=== PATIENT | female | born 1975 | race Caucasian/White ===

== ENCOUNTER 2017-07-27 19:10 | Emergency (ER) | payer BC ==
[2017-07-27] MEDS ORDERED: ASPIRIN 81 MG TABLET, CHEWABLE PO ONE (19:50)
--- NOTE | 2017-07-27 19:55 | ER Document Report ---
ED Medical Screen (RME) - General Chief Complaint: Chest Pain > 30 Stated Complaint: CHEST DISCOMFORT Time Seen by Provider: 07/27/17 19:49 Mode of Arrival: Ambulatory Information source: Patient Notes: 42-year-old female history of anxiety ankylosing spondylolysis presents with 3 day duration of chest pain. Patient has taken antacids anxiety and itching with no relief of her pain. Patient denies any fevers or chills denies any nausea vomiting or diarrhea I have greeted and performed a rapid initial assessment of this patient. A comprehensive ED assessment and evaluation of the patient, analysis of test results and completion of the medical decision making process will be conducted by additional ED providers. PHYSICAL EXAMINATION: GENERAL: Well-appearing, well-nourished and in no acute distress. HEAD: Atraumatic, normocephalic. EYES: Pupils equal round extraocular movements intact, conjunctiva are normal. ENT: Nares patent NECK: Normal range of motion LUNGS: No respiratory distress Musculoskeletal: Normal range of motion NEUROLOGICAL: Normal speech, normal gait. PSYCH: Normal mood, normal affect. SKIN: Warm, Dry, normal turgor, no rashes or lesions noted. TRAVEL OUTSIDE OF THE [place] IN LAST 30 DAYS: No - Related Data Allergies/Adverse Reactions: miconazole nitrate [From Monistat 3] Allergy (Severe, Verified 07/29/14 10:52) Hives nitrofurantoin [From Macrobid] Allergy (Severe, Verified 07/29/14 10:52) Anaphylaxis nitrofurantoin macrocrystalline [From Macrobid] Allergy (Severe, Verified 10:52) Anaphylaxis Sulfa (Sulfonamide Antibiotics) Allergy (Severe, Verified 07/29/14 10:52) Anaphylaxis promethazine HCl [From Phenergan] Adverse Reaction (Severe, Verified 07/29/14 10 :52) Psychosis Past Medical History Neurological Medical History: Reports: Hx Migraine Renal/ Medical History: Denies: Hx Peritoneal Dialysis Past Surgical History: Reports: Hx Appendectomy, Hx Section, Hx Cholecystectomy, Hx Thyroid Surgery, Hx Tonsillectomy Physical Exam - Vital signs Vitals: Temp Pulse Resp BP Pulse Ox 97.7 F 100 17 159/91 H 100 07/27/17 19:20 07/27/17 19:20 07/27/17 19:20 07/27/17 19:20 07/27/17 19:20 Course - Vital Signs Vital signs: Temp Pulse Resp BP Pulse Ox 97.7 F 100 17 159/91 H 100 07/27/17 19:20 07/27/17 19:20 07/27/17 19:20 07/27/17 19:20 07/27/17 19:20
[2017-07-27 20:22] LABS: ABSOLUTE BASOPHILS # (AUTO) 0.1 10^3/uL (0.0-0.2); ABSOLUTE EOSINOPHILS # (AUTO) 0.1 10^3/uL (0.0-0.6); ABSOLUTE MONOCYTES (AUTO) 0.4 10^3/uL (0.1-1.4); ABSOLUTE NEUT (AUTO) 3.6 10^3/uL (1.7-8.2); EOSINOPHILS % (AUTO) 0.8 % (0-6); HEMOGLOBIN 13.2 g/dL (12.0-15.5); HGB HCT DIFFERENCE 0.6; LYMPHOCYTES % (AUTO) 42.7 % (13-45); MEAN CORPUSCULAR HEMOGLOBIN 30.2 pg (27.0-33.4); MEAN CORPUSCULAR HGB CONC 33.8 g/dL (32.0-36.0); MEAN CORPUSCULAR VOLUME 90 fl (80-97); MONOCYTES % (AUTO) 5.2 % (3-13); RED BLOOD COUNT 4.36 10^6/uL (3.72-5.28); RED CELL DISTRIBUTION WIDTH 12.9 % (11.5-14.0); SEGMENTED NEUTROPHILS % (AUTO) 50.3 % (42-78); WHITE BLOOD COUNT 7.1 10^3/uL (4.0-10.5)
--- NOTE | 2017-07-27 20:30 | RADIOLOGY REPORT (SQ) ---
EXAM DESCRIPTION: CHEST SINGLE VIEW COMPLETED DATE/TIME: 07/27/2017 8:19 pm REASON FOR STUDY: chest pain COMPARISON: December 2010 EXAM PARAMETERS: NUMBER OF VIEWS: One view. TECHNIQUE: Single frontal radiographic view of the chest acquired. RADIATION DOSE: NA LIMITATIONS: None. FINDINGS: LUNGS AND PLEURA: No opacities, masses or pneumothorax. No pleural effusion. MEDIASTINUM AND HILAR STRUCTURES: No masses. Contour normal. HEART AND VASCULAR STRUCTURES: Heart normal in size. Normal vasculature. BONES: No acute findings. HARDWARE: None in the chest. OTHER: No other significant finding. IMPRESSION: NO ACUTE RADIOGRAPHIC FINDING IN THE CHEST. TECHNICAL DOCUMENTATION: JOB ID: [id number]
[2017-07-27 20:43] LABS: ALANINE AMINOTRANSFERASE 21 U/L (9-52); ALBUMIN 4.3 g/dL (3.5-5.0); ALKALINE PHOSPHATASE 58 U/L (38-126); ANION GAP 9 (5-19); ASPARTATE AMINO TRANSFERASE 43 U/L (14-36); BILIRUBIN,DIRECT 0.4 mg/dL (0.0-0.4); BILIRUBIN,TOTAL 0.5 mg/dL (0.2-1.3); BLOOD UREA NITROGEN 18 mg/dL (7-20); CARBON DIOXIDE 29 mmol/L (22-30); CHLORIDE 103 mmol/L (98-107); CREATINE KINASE 83 U/L (30-135); CREATININE RESULT 0.82 mg/dL (0.52-1.25); GLUCOSE 103 mg/dL (75-110); POTASSIUM 3.7 mmol/L (3.6-5.0); SODIUM 140.9 mmol/L (137-145); TOTAL PROTEIN 7.2 g/dL (6.3-8.2)
[2017-07-27] MEDS ORDERED: ALPRAZOLAM 0.5 MG TABLET PO ONE (20:43)
--- NOTE | 2017-07-27 20:48 | ER Document Report ---
ED General - General Chief Complaint: Chest Pain > 30 Stated Complaint: CHEST DISCOMFORT Time Seen by Provider: 07/27/17 19:49 Mode of Arrival: Ambulatory Information source: Patient Notes: 42-year-old female with a history of thyroid cancer (status post thyroidectomy) , rheumatoid arthritis, ankylosing spondylitis, migraines. The patient presents to the emergency room with constant retrosternal chest pain radiating to the back since Thursday at approximately 10 AM (constant for approximately 72 hours). Patient states she was in the MRI scanner when she started having discomfort. Patient has a cervical radiculopathy with constant left arm pain and she has chronic back pain. 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 She denies any exertional shortness of breath. She denies any worsening pain with exertion. The pain is worse with movement. TRAVEL OUTSIDE OF THE [place] IN LAST 30 DAYS: No - HPI Onset: Last week Onset/Duration: Gradual Quality of pain: Dull Severity: Moderate Pain Level: 3 Associated symptoms: denies: Chest pain, Fever, Shortness of breath Exacerbated by: Movement Relieved by: Denies Similar symptoms previously: Yes Recently seen / treated by doctor: Yes - Related Data Allergies/Adverse Reactions: miconazole nitrate [From Monistat 3] Allergy (Severe, Verified 07/29/14 10:52) Hives nitrofurantoin [From Macrobid] Allergy (Severe, Verified 07/29/14 10:52) Anaphylaxis nitrofurantoin macrocrystalline [From Macrobid] Allergy (Severe, Verified 10:52) Anaphylaxis Sulfa (Sulfonamide Antibiotics) Allergy (Severe, Verified 07/29/14 10:52) Anaphylaxis promethazine HCl [From Phenergan] Adverse Reaction (Severe, Verified 07/29/14 10 :52) Psychosis Past Medical History - General Information source: Patient - Social History Smoking Status: Former Smoker Cigarette use (# per day): No Chew tobacco use (# tins/day): No Frequency of alcohol use: Social Drug Abuse: None Lives with: Family Family History: None, Other - Colon cancer Patient has suicidal ideation: No Patient has homicidal ideation: No - Past Medical History Cardiac Medical History: Reports: None Pulmonary Medical History: Reports: None Neurological Medical History: Reports: Hx Migraine Endocrine Medical History: Reports: Other - thyroid ca s/o thyroidectomy Renal/ Medical History: Reports: None Malignancy Medical History: Reports: None GI Medical History: Reports: None Musculoskeltal Medical History: Reports Other - RA, Skin Medical History: Reports None Psychiatric Medical History: Reports: None Traumatic Medical History: Reports: None Past Surgical History: Reports: Hx Appendectomy, Hx Section, Hx Cholecystectomy, Hx Thyroid Surgery, Hx Tonsillectomy Review of Systems - Review of Systems Constitutional: denies: Chills, Fever EENT: No symptoms reported Cardiovascular: No symptoms reported Respiratory: No symptoms reported Gastrointestinal: No symptoms reported Genitourinary: No symptoms reported Female Genitourinary: No symptoms reported Musculoskeletal: See HPI Skin: No symptoms reported Hematologic/Lymphatic: No symptoms reported Neurological/Psychological: No symptoms reported Physical Exam - Vital signs Vitals: Temp Pulse Resp BP Pulse Ox 97.7 F 100 17 159/91 H 100 07/27/17 19:20 07/27/17 19:20 07/27/17 19:20 07/27/17 19:20 07/27/17 19:20 Notes: Physical exam: GENERAL: 42-year-old female, alert and oriented 3, blood pressure 154/101, pulse 90. HEAD: Atraumatic, normocephalic. EYES: Pupils equal round and reactive to light, extraocular movements intact, sclera anicteric, conjunctiva are normal. ENT: TMs normal, nares patent, oropharynx clear without exudates. Moist mucous membranes. NECK: Normal range of motion, supple without obvious mass or JVD. LUNGS: Breath sounds clear to auscultation bilaterally and equal. No wheezes rales or rhonchi. HEART: Regular rate and rhythm without murmurs, rubs or gallops. ABDOMEN: Soft, normoactive bowel sounds. No tenderness to palpation. No guarding, no rebound. No masses appreciated. EXTREMITIES: Normal range of motion, no pitting or edema. No clubbing or cyanosis. NEUROLOGICAL: Cranial nerves II through XII grossly intact. Normal speech, moving all extremities. PSYCH: Normal mood, normal affect. SKIN: Warm, Dry, normal turgor, no rashes or lesions noted. Course - Re-evaluation Re-evalutation: 07/27/17 23:25 Patient states she got instantaneous relief with the Dilaudid. She is now walking to the bathroom. She does appear much more comfortable. - Vital Signs Vital signs: Temp Pulse Resp BP Pulse Ox 97.7 F 100 18 124/91 H 99 07/27/17 19:20 07/27/17 19:20 07/28/17 00:01 07/28/17 00:01 07/28/17 00:01 - Laboratory Result Diagrams: 07/27/17 20:10 07/27/17 20:10 Laboratory results interpreted by me: 07/27/17 20:10 AST 43 H - Diagnostic Test Radiology reviewed: Image reviewed, Reports reviewed - Chest x-ray shows no infiltrates or effusions - EKG Interpretation by Me Rate: Normal, Tachycardia Rhythm: NSR - EKG shows sinus rhythm with a ventricular rate of 100, no acute ST -T wave changes. The patient reports that her heart rate is normally between 80 and 100. Discharge - Discharge Clinical Impression: Chest wall pain Condition: Stable Disposition: HOME, SELF-CARE Additional Instructions: Thank you for choosing [facility] for your care. The examination and treatment you have received in the Emergency Department today has been rendered on an emergency basis only and is not intended to be a substitute for complete medical care. You should contact your follow-up physician as it is important that he or she examine you for any new or remaining problems. If given a copy of any lab tests or radiology reports, please bring them with you when you see your physician. If your problem worsens or new symptoms appear and you are unable to arrange prompt follow-up care, return to the Emergency Department. Specific signs to look out for: Shortness of breath, worsening pain Any other instructions: Take the Dilaudid as prescribed. Follow-up with your primary care doctor (Dr. Buckley). Bring a copy of today's lab tests and CT report with with you when you call. The pain medicine you're taking prescribed as a narcotic. There are several important things you should know about this medicine: 1. Taking narcotics for too long can lead to physical and mental dependence. Take this medicine only if really needed and in the lowest quantity to achieve pain relief. 2. Do not drink alcohol while on this medicine. Alcohol interacts with narcotics and the combination can be dangerous. 3. Do not drive or operate machinery while on this medicine. 4. Narcotics do cause constipation, so drink plenty of fluids and daily stool softeners. Prescriptions: Hydromorphone HCl [Dilaudid 2 Mg Tablet] 2 mg PO Q6H PRN #20 tablet PRN Reason: for pain Forms: Parent Work Note, Return to Work Referrals: HUI ALTAMIRANO MD [Primary Care Provider] - Follow up as needed
[2017-07-27 20:55] LABS: CREATINE KINASE MB 0.39 ng/mL (<4.55)
[2017-07-27 20:56] LABS: TROPONIN I < 0.012 ng/mL
[2017-07-27] MEDS ORDERED: ONDANSETRON HCL INJ/PF 4 MG/2 ML SDV IV ONE (22:07)
[2017-07-27] MEDS ORDERED: HYDROMORPHONE HCL INJ/PF 2 MG/ML AMPULE IV ONE (22:07)
--- NOTE | 2017-07-27 22:42 | RADIOLOGY REPORT (SQ) ---
EXAM DESCRIPTION: CTA CHEST COMPLETED DATE/TIME: 07/27/2017 10:06 pm REASON FOR STUDY: cp COMPARISON: Chest x-ray dated 07/27/2017 TECHNIQUE: CT scan of the chest performed using helical scanning technique with dynamic intravenous contrast injection. Images reviewed with lung, soft tissue and bone windows. Reconstructed coronal and sagittal MPR images reviewed. Additional 3 dimensional post-processing performed to develop Maximal Intensity Projection images (WA P). All images stored on PACS. All CT scanners at this facility use dose modulation, iterative reconstruction, and/or weight based d osing when appropriate to reduce radiation dose to as low as reasonably achievable (ALARA). [facility]: Dose Right [facility]: CareDose [facility]: Dose Right [facility]: Teradose 4D [facility]: Movinary CONTRAST TYPE AND DOSE: contrast/concentration: Isovue 370.00 mg/ml; Total Contrast Delivered: 100.0 ml; Total Saline Delivered: 75.1 ml Contrast bolus optimized for the pulmonary arteries. Not diagnostic for the aorta. RENAL FUNCTION: Creatinine 0.82 RADIATION DOSE: Up-to-date CT equipment and radiation dose reduction techniques were employed. CTDIv ol: 5.0 - 15.8 mGy. DLP: 564 mGy-cm. . LIMITATIONS: None. FINDINGS: LUNGS AND PLEURA: No masses, infiltrates, pneumothorax. No pleural effusions, calcificati ons. AORTA AND GREAT VESSELS: No aneurysm. Contrast bolus not optimized for the aorta. HEART: No pericardial effusion. No significant coronary artery calcifications. PULMONARY ARTERIES: No emboli visualized in the main pulmonary arteries or the segmental branches. HILAR AND MEDIASTINAL STRUCTURES: No identified masses or abnormal nodes. HARDWARE: None in the chest. UPPER ABDOMEN: No significant findings. Limited exam. THYROID AND OTHER SOFT TISSUES: No masses. No adenopathy. BONES: No acute or significant finding. 3D MIPS: Confirm above findings. OTHER: No other significant finding. IMPRESSION: NORMAL CTA OF THE CHEST. NO PULMONARY EMBOLI. COMMENT: Quality ID # [id number]: Final reports with documentation of one or more dose reduction techniques (e.g., Automated exposure control, adjustment of the mA and/or kV according to patient size, use of iterative reconstruction technique) TECHNICAL DOCUMENTATION: JOB ID: [id number]- All Rights Reserved
[2017-07-28 00:05] VITALS: BP 124/91
--- NOTE | 2017-07-28 07:56 | EKG REPORT ---
SEVERITY:- BORDERLINE ECG - SINUS TACHYCARDIA PROBABLE LEFT ATRIAL ABNORMALITY : Confirmed by: Marcus Watkins MD 28-Jul-2017 07:54:58
== END 2017-07-28 00:23 | disposition home or self-care (01) ==
LOC: ER 19:10
DX: R07.89 Other chest pain (principal); R00.0 Tachycardia, unspecified; M54.12 Radiculopathy, cervical region; G89.29 Other chronic pain; E89.0 Postprocedural hypothyroidism; Z88.3 Allergy status to other anti-infective agents; Z87.892 Personal history of anaphylaxis; Z88.2 Allergy status to sulfonamides; Z88.1 Allergy status to other antibiotic agents; Z87.891 Personal history of nicotine dependence; Z85.850 Personal history of malignant neoplasm of thyroid
CPT/HCPCS: 93005; 99285; 96374; 96375; 36415; 82553; 82550; 85025; 80053; 84484; 71010; 71275; 93010; J1170; J2405

== ENCOUNTER 2018-07-12 13:49 | Emergency (ER) | payer BC ==
[2018-07-12] MEDS ORDERED: NORMAL SALINE 1000 ML 1,000 ML IV ONE (14:15)
[2018-07-12] MEDS ORDERED: ONDANSETRON HCL INJ/PF 4 MG/2 ML SDV IV ONE (14:17)
--- NOTE | 2018-07-12 14:17 | ER Document Report ---
ED Medical Screen (RME) - General Chief Complaint: Head Injury with LOC Stated Complaint: FELL/HIT HEAD Time Seen by Provider: 07/12/18 14:02 Mode of Arrival: Wheelchair Information source: Patient Notes: This is a 43-year-old female with a history of thyroid cancer (status post thyroidectomy), rheumatoid arthritis, ankylosing spondylitis, migraines. Patient was usual state of health until afternoon today when she started having abdominal cramping, diarrhea diffuse sweating and she fell leaving the bathroom. She hit the door to the bathroom and had loss of consciousness. She complains of 5/5 headache. TRAVEL OUTSIDE OF THE [place] IN LAST 30 DAYS: No - Related Data Allergies/Adverse Reactions: miconazole nitrate [From Monistat 3] Allergy (Severe, Verified 07/12/18 13:56) Hives nitrofurantoin [From Macrobid] Allergy (Severe, Verified 07/12/18 13:56) Anaphylaxis nitrofurantoin macrocrystalline [From Macrobid] Allergy (Severe, Verified 13:56) Anaphylaxis Sulfa (Sulfonamide Antibiotics) Allergy (Severe, Verified 07/12/18 13:56) Anaphylaxis promethazine HCl [From Phenergan] Adverse Reaction (Severe, Verified 07/12/18 13 :56) Psychosis Past Medical History - Social History Chew tobacco use (# tins/day): No Frequency of alcohol use: Rare Drug Abuse: None Neurological Medical History: Reports: Hx Migraine Renal/ Medical History: Denies: Hx Peritoneal Dialysis Past Surgical History: Reports: Hx Appendectomy, Hx Section, Hx Cholecystectomy, Hx Thyroid Surgery, Hx Tonsillectomy Physical Exam - Vital signs Vitals: Temp Pulse Resp BP Pulse Ox 97.6 F 81 18 128/72 H 99 07/12/18 13:58 07/12/18 13:58 07/12/18 13:58 07/12/18 13:58 07/12/18 13:58 Course - Vital Signs Vital signs: Temp Pulse Resp BP Pulse Ox 97.6 F 81 18 128/72 H 99 07/12/18 13:58 07/12/18 13:58 07/12/18 13:58 07/12/18 13:58 07/12/18 13:58 Doctor's Discharge - Discharge Referrals: HUI ALTAMIRANO MD [Primary Care Provider] - Follow up as needed
--- NOTE | 2018-07-12 14:43 | ER Document Report ---
ED Syncope and Near Syncope - General Chief Complaint: Head Injury with LOC Stated Complaint: FELL/HIT HEAD Time Seen by Provider: 07/12/18 14:02 Mode of Arrival: Wheelchair Information source: Patient Notes: 43-year-old female felt fine until noon today she started getting abdominal cramping and diarrhea. She sat on the toilet for 30 minutes. When she felt like she could get up she felt lightheaded grabbed the door and the next thing she knows she woke up with her head inside the closet. She has already been to CT scan and x-ray. Her IV in the left antecubital is not irrigating. She is complaining of nausea and headache pain. I changed the Zofran to 8 mg ODT and the nurse will have to restart the IV. Patient has had vasovagal syncope in the past and had a cardiac event monitor for 30 days which did not reveal any cardiac dysrhythmias. TRAVEL OUTSIDE OF THE [place] IN LAST 30 DAYS: No - Related Data Allergies/Adverse Reactions: miconazole nitrate [From Monistat 3] Allergy (Severe, Verified 07/12/18 13:56) Hives nitrofurantoin [From Macrobid] Allergy (Severe, Verified 07/12/18 13:56) Anaphylaxis nitrofurantoin macrocrystalline [From Macrobid] Allergy (Severe, Verified 13:56) Anaphylaxis Sulfa (Sulfonamide Antibiotics) Allergy (Severe, Verified 07/12/18 13:56) Anaphylaxis promethazine HCl [From Phenergan] Adverse Reaction (Severe, Verified 07/12/18 13 :56) Psychosis Past Medical History - General Information source: Patient - Social History Smoking Status: Never Smoker Chew tobacco use (# tins/day): No Frequency of alcohol use: Rare Drug Abuse: None Family History: None, Other - Colon cancer Patient has suicidal ideation: No Patient has homicidal ideation: No Neurological Medical History: Reports: Hx Migraine Renal/ Medical History: Denies: Hx Peritoneal Dialysis Past Surgical History: Reports: Hx Appendectomy, Hx Section, Hx Cholecystectomy, Hx Thyroid Surgery, Hx Tonsillectomy Review of Systems - Review of Systems Constitutional: No symptoms reported EENT: No symptoms reported Cardiovascular: No symptoms reported Respiratory: No symptoms reported Gastrointestinal: No symptoms reported Genitourinary: No symptoms reported Female Genitourinary: No symptoms reported Musculoskeletal: No symptoms reported Skin: No symptoms reported Hematologic/Lymphatic: No symptoms reported Neurological/Psychological: No symptoms reported Physical Exam - Vital signs Vitals: Temp Pulse Resp BP Pulse Ox 97.6 F 81 18 128/72 H 99 07/12/18 13:58 07/12/18 13:58 07/12/18 13:58 07/12/18 13:58 07/12/18 13:58 Interpretation: Normal - General General appearance: Appears well, Alert In distress: None - HEENT Head: Normocephalic, Atraumatic Eyes: Normal Conjunctiva: Normal Extraocular movements intact: Yes Pupils: PERRL Ears: Normal Tympanic membrane: Normal Mucous membranes: Normal Pharynx: Normal Neck: Supple. No: Lymphadenopathy - Respiratory Respiratory status: No respiratory distress Chest status: Nontender Breath sounds: Normal Chest palpation: Normal - Cardiovascular Rhythm: Regular Heart sounds: Normal auscultation Murmur: No - Abdominal Inspection: Normal Distension: No distension Bowel sounds: Normal Tenderness: Nontender Organomegaly: No organomegaly - Back Back: Normal, Nontender - Extremities General upper extremity: Normal inspection, Nontender, Normal color, Normal ROM , Normal temperature General lower extremity: Normal inspection, Nontender, Normal color, Normal ROM , Normal temperature, Normal weight bearing. No: Concha's sign - Neurological Neuro grossly intact: Yes Cognition: Normal Orientation: AAOx4 [place] Coma Scale Eye Opening: Spontaneous [place] Coma Scale Verbal: Oriented [place] Coma Scale Motor: Obeys Commands Izabel Coma Scale Total: 15 Speech: Normal Motor strength normal: LUE, RUE, LLE, RLE Sensory: Normal - Psychological Associated symptoms: Normal affect, Normal mood - Skin Skin Temperature: Warm Skin Moisture: Dry Skin Color: Normal Course - Re-evaluation Re-evalutation: 07/12/18 16:03 Lab is negative, CT of the head and neck are negative, left shoulder x-ray is negative patient is not wanting to stay for the IV the nurse had readjusted the IV and it will drip if she holds her arm in a certain location. She is doing almost a full Gatorade. She states that this headache pain may be due to migraines which she has had in the past. I will try some Benadryl and Reglan to reduce the pain level. Patient states that sitting here is making her headache worse and that she feels like she wants to go home. she Wants to try the medicine first. 07/12/18 16:04 07/12/18 16:23 Explained head injury instructions to the patient and her mother who is in the room. The mother lives across the street. Patient also states that she will call her home from work to stay with today. Some relief from the reglan and benadryl IV. - Vital Signs Vital signs: Temp Pulse Resp BP Pulse Ox 98.1 F 84 18 130/74 H 100 07/12/18 16:59 07/12/18 16:59 07/12/18 16:59 07/12/18 16:59 07/12/18 16:59 - Laboratory Result Diagrams: 07/12/18 14:23 07/12/18 14:23 Laboratory results interpreted by me: 07/12/18 14:23 Seg Neutrophils % 79.6 H - EKG Interpretation by Me EKG shows normal: Sinus rhythm Rate: Normal Rhythm: NSR Discharge - Discharge Clinical Impression: Syncopal episode, Left forehead contusion, Diarrhea episodes, Head injury Headache Qualifiers: Headache type: unspecified Headache chronicity pattern: acute headache Intractability: not intractable Qualified Code(s): R51 - Headache Condition: Good Disposition: HOME, SELF-CARE Instructions: Contusion ([facility]), Diarrhea, Nonspecific ([facility]), Headache ([facility]), Head Injury Precautions ([facility]), Syncopal Episode ([facility]) Additional Instructions: Tylenol up to 4000 mg a day for headache No work tomorrow 2 plenty of fluids today and advance diet as tolerated Return to the emergency room for any worsening of symptoms Copy of lab work and imaging results given to you Referrals: HUI ALTAMIRANO MD [Primary Care Provider] - Follow up tomorrow
[2018-07-12 14:44] LABS: ABSOLUTE LYMPHOCYTES (AUTO) 1.4 10^3/uL (0.5-4.7); ABSOLUTE MONOCYTES (AUTO) 0.4 10^3/uL (0.1-1.4); ABSOLUTE NEUT (AUTO) 7.3 10^3/uL (1.7-8.2); BASOPHILS % (AUTO) 0.5 % (0-2); EOSINOPHILS % (AUTO) 0.3 % (0-6); HEMATOCRIT 44.9 % (36.0-47.0); LYMPHOCYTES % (AUTO) 15.5 % (13-45); MEAN CORPUSCULAR HGB CONC 33.4 g/dL (32.0-36.0); MEAN CORPUSCULAR VOLUME 90 fl (80-97); MONOCYTES % (AUTO) 4.1 % (3-13); PLATELET COUNT 281 10^3/uL (150-450); RED CELL DISTRIBUTION WIDTH 13.7 % (11.5-14.0); SEGMENTED NEUTROPHILS % (AUTO) 79.6 % (42-78); TOTAL CELLS COUNTED % (AUTO) 100 %; WHITE BLOOD COUNT 9.2 10^3/uL (4.0-10.5)
[2018-07-12] MEDS ORDERED: ACETAMINOPHEN 325 MG TABLET PO ONE (14:53)
--- NOTE | 2018-07-12 14:53 | RADIOLOGY REPORT (SQ) ---
EXAM DESCRIPTION: SHOULDER LEFT 2 OR MORE VIEWS COMPLETED DATE/TIME: 07/12/2018 2:44 pm REASON FOR STUDY: left shoulder pain s/p fall COMPARISON: None. NUMBER OF VIEWS: Three views. TECHNIQUE: Internal rotation, external rotation, and Y view images acquired of the left shoulder. LIMITATIONS: None. FINDINGS: MINERALIZATION: Normal. BONES: No acute fracture or dislocation. No worrisome bone lesions. JOINTS: No dislocation. VISUALIZED LUNGS AND RIBS: No pneumothorax. No rib fracture. SOFT TISSUES: No radiopaque foreign body. OTHER: No other significant finding. IMPRESSION: NEGATIVE STUDY OF THE LEFT SHOULDER. NO RADIOGRAPHIC EVIDENCE OF ACUTE INJURY. TECHNICAL DOCUMENTATION: JOB ID: [id number] [employer]- All Rights Reserved Reading location - IP/workstation name: [email or web address]
[2018-07-12] MEDS ORDERED: ONDANSETRON 4 MG TAB.RAPDIS PO ONE (14:55)
[2018-07-12 14:59] LABS: ALANINE AMINOTRANSFERASE 29 U/L (9-52); ALBUMIN 4.6 g/dL (3.5-5.0); ALKALINE PHOSPHATASE 59 U/L (38-126); ANION GAP 16 (5-19); ASPARTATE AMINO TRANSFERASE 29 U/L (14-36); BILIRUBIN,DIRECT 0.4 mg/dL (0.0-0.4); BILIRUBIN,TOTAL 0.4 mg/dL (0.2-1.3); BLOOD UREA NITROGEN 17 mg/dL (7-20); CALCIUM 9.6 mg/dL (8.4-10.2); CARBON DIOXIDE 24 mmol/L (22-30); CHLORIDE 104 mmol/L (98-107); GLUCOSE 106 mg/dL (75-110); POTASSIUM 4.5 mmol/L (3.6-5.0); SODIUM 143.8 mmol/L (137-145)
--- NOTE | 2018-07-12 15:05 | RADIOLOGY REPORT (SQ) ---
EXAM DESCRIPTION: CT HEAD WITHOUT COMPLETED DATE/TIME: 07/12/2018 2:52 pm REASON FOR STUDY: fall, thomas, loc COMPARISON: 07/05/2009 TECHNIQUE: Axial images acquired through the brain without intravenous contrast. Images reviewed wi th bone, brain and subdural windows. Additional sagittal and coronal reconstructions were generated. Images stored on PACS. All CT scanners at this facility use dose modulation, iterative reconstruction, and/or weight based d osing when appropriate to reduce radiation dose to as low as reasonably achievable (ALARA). [facility]: Dose Right [facility]: CareDose [facility]: Dose Right [facility]: Teradose 4D [facility]: Smart Compario RADIATION DOSE: CT Rad equipment meets quality standard of care and radiation dose reduction techniq ues were employed. CTDIvol: 53.2 mGy. DLP: 1017 mGy-cm. mGy. LIMITATIONS: None. FINDINGS: VENTRICLES: Normal size and contour. CEREBRUM: No masses. No hemorrhage. No midline shift. No evidence for acute infarction. Normal gra y/white matter differentiation. No areas of low density in the white matter. CEREBELLUM: No masses. No hemorrhage. No alteration of density. No evidence for acute infarction. EXTRAAXIAL SPACES: No fluid collections. No masses. ORBITS AND GLOBE: No intra- or extraconal masses. Normal contour of globe without masses. CALVARIUM: No fracture. PARANASAL SINUSES: No fluid or mucosal thickening. SOFT TISSUES: No mass or hematoma. OTHER: No other significant finding. IMPRESSION: NORMAL BRAIN CT WITHOUT CONTRAST. EVIDENCE OF ACUTE STROKE: NO. COMMENT: Quality ID # [id number]: Final reports with documentation of one or more dose reduction techniques (e.g., Automated exposure control, adjustment of the mA and/or kV according to patient size, use of iterative reconstruction technique) TECHNICAL DOCUMENTATION: JOB ID: [id number] [employer]- All Rights Reserved Reading location - IP/workstation name: [email or web address]
--- NOTE | 2018-07-12 15:12 | RADIOLOGY REPORT (SQ) ---
EXAM DESCRIPTION: CT CERVICAL SPINE WITHOUT COMPLETED DATE/TIME: 07/12/2018 2:52 pm REASON FOR STUDY: fall, head injury COMPARISON: None. TECHNIQUE: Axial images acquired through the cervical spine without intravenous contrast. Images re viewed with lung, soft tissue and bone windows. Reconstructed coronal and sagittal MPR images review ed. Images stored on PACS. All CT scanners at this facility use dose modulation, iterative reconstruction, and/or weight based d osing when appropriate to reduce radiation dose to as low as reasonably achievable (ALARA). [facility]: Dose Right [facility]: CareDose [facility]: Dose Right [facility]: Teradose 4D [facility]: [employer] RADIATION DOSE: CT Rad equipment meets quality standard of care and radiation dose reduction techniq ues were employed. CTDIvol: 20.1 mGy. DLP: 399 mGy-cm. mGy. LIMITATIONS: None. FINDINGS: ALIGNMENT: Anatomic. MINERALIZATION: Normal. VERTEBRAL BODIES: No fractures or dislocation. DISCS: No significant disc disease. FACETS, LATERAL MASSES, POSTERIOR ELEMENTS: No fractures. No dislocation. No acute findings. HARDWARE: None in the spine. VISUALIZED RIBS: No fractures. LUNG APICES AND SOFT TISSUES: No significant or acute findings. OTHER: No other significant finding. IMPRESSION: NO ACUTE OR SIGNIFICANT FINDINGS IN THE CERVICAL SPINE. TECHNICAL DOCUMENTATION: JOB ID: [id number] Quality ID # [id number]: Final reports with documentation of one or more dose reduction techniques (e.g., Au tomated exposure control, adjustment of the mA and/or kV according to patient size, use of iterative reconstruction technique) 2010 [employer]- All Rights Reserved Reading location - IP/workstation name: [email or web address]
[2018-07-12] MEDS ORDERED: DIPHENHYDRAMINE HCL 50 MG/ML VIAL IV ONE (16:03)
[2018-07-12] MEDS ORDERED: METOCLOPRAMIDE HCL INJ/PF 10 MG/2 ML SDV IV ONE (16:03)
[2018-07-12 17:00] VITALS: BP 130/74
--- NOTE | 2018-07-12 17:18 | EKG REPORT ---
SEVERITY:- NORMAL ECG - SINUS RHYTHM : Confirmed by: Marcus Watkins MD 12-Jul-2018 17:17:44
== END 2018-07-12 17:00 | disposition home or self-care (01) ==
LOC: ER 13:49
DX: S00.83XA Contusion of other part of head, initial encounter (principal); S09.90XA Unspecified injury of head, initial encounter; R55 Syncope and collapse; R19.7 Diarrhea, unspecified; R10.9 Unspecified abdominal pain; R11.0 Nausea; R51 Headache; W19.XXXA Unspecified fall, initial encounter
CPT/HCPCS: 93005; 99285; 96361; 96374; 96375; 36415; 84702; 85025; 80053; 73030; 70450; 72125; 93010; J1200; S0119; J2765; J7030

== ENCOUNTER 2018-08-29 15:54 | Emergency (ER) | payer BC ==
[2018-08-29] MEDS ORDERED: HYDROCODONE/ACETAMINOPHEN 5-325 MG TABLET PO ONE (16:39)
--- NOTE | 2018-08-29 16:41 | ER Document Report ---
ED Medical Screen (RME) - General Chief Complaint: Leg Injury Stated Complaint: LEG PAIN Time Seen by Provider: 08/29/18 16:26 TRAVEL OUTSIDE OF THE [place] IN LAST 30 DAYS: No - HPI Patient complains to provider of: pain in left leg Onset: Other - 43-year-old female with a history of rheumatoid arthritis on intermittent biologic injections that presents for evaluation of pain in the left leg after attempting to make her bed. She felt a pop in exquisite pain in the left calf. She tried to continue on but the pain made it such that she is unable to walk, she says her foot feels like it is . - Related Data Allergies/Adverse Reactions: miconazole nitrate [From Monistat 3] Allergy (Severe, Verified 08/29/18 16:32) Hives nitrofurantoin [From Macrobid] Allergy (Severe, Verified 08/29/18 16:32) Anaphylaxis nitrofurantoin macrocrystalline [From Macrobid] Allergy (Severe, Verified 16:32) Anaphylaxis Sulfa (Sulfonamide Antibiotics) Allergy (Severe, Verified 08/29/18 16:32) Anaphylaxis promethazine HCl [From Phenergan] Adverse Reaction (Severe, Verified 08/29/18 16 :32) Psychosis Past Medical History - Social History Chew tobacco use (# tins/day): No Frequency of alcohol use: None Drug Abuse: None Neurological Medical History: Reports: Hx Migraine Renal/ Medical History: Denies: Hx Peritoneal Dialysis Musculoskeltal Medical History: Reports Hx Arthritis Past Surgical History: Reports: Hx Appendectomy, Hx Section, Hx Cholecystectomy, Hx Thyroid SurgeryComment Only: Hx Tonsillectomy - adnoids removed Physical Exam - Vital signs Vitals: Temp Pulse Resp BP Pulse Ox 98.4 F 108 H 18 145/95 H 98 08/29/18 16:07 08/29/18 16:07 08/29/18 16:07 08/29/18 16:07 08/29/18 16:07 Course - Re-evaluation Re-evalutation: 08/29/18 16:40 43-year-old female with a leg pain in the gastrocnemius concerning for possible Achilles tendon rupture. I have greeted and performed a rapid initial assessment of this patient. A comprehensive ED assessment and evaluation of the patient, analysis of test results and completion of the medical decision making process will be conducted by additional ED providers - Vital Signs Vital signs: Temp Pulse Resp BP Pulse Ox 98.4 F 108 H 18 145/95 H 98 08/29/18 16:07 08/29/18 16:07 08/29/18 16:07 08/29/18 16:07 08/29/18 16:07 Doctor's Discharge - Discharge Referrals: HUI ALTAMIRANO MD [Primary Care Provider] - Follow up as needed
[2018-08-29] MEDS ORDERED: KETOROLAC TROMETHAMINE 60 MG/2 ML SDV IM PRN (17:19)
--- NOTE | 2018-08-29 17:22 | ER Document Report ---
ED Extremity Problem, Lower - General Chief Complaint: Leg Injury Stated Complaint: LEG PAIN Time Seen by Provider: 08/29/18 16:26 Notes: 43-year-old female to the emergency department chief complaint of severe pain in the left calf. States that she was making her bed and leaned over the bed and felt severe pain in her calf. Never has had this happen before. Patient does have history of connective tissue disorder as well as rheumatoid arthritis. On biologic agents at this time. Of note, patient took a long airplane ride within the last 2 weeks. No prior history of DVTs O does not smoke. TRAVEL OUTSIDE OF THE [place] IN LAST 30 DAYS: No - HPI Patient complains to provider of: Pain, Swelling Location: Leg Occurred: Just prior to arrival Where: Home - Related Data Allergies/Adverse Reactions: miconazole nitrate [From Monistat 3] Allergy (Severe, Verified 08/29/18 16:32) Hives nitrofurantoin [From Macrobid] Allergy (Severe, Verified 08/29/18 16:32) Anaphylaxis nitrofurantoin macrocrystalline [From Macrobid] Allergy (Severe, Verified 16:32) Anaphylaxis Sulfa (Sulfonamide Antibiotics) Allergy (Severe, Verified 08/29/18 16:32) Anaphylaxis promethazine HCl [From Phenergan] Adverse Reaction (Severe, Verified 08/29/18 16 :32) Psychosis Past Medical History - General Information source: Patient - Social History Smoking Status: Never Smoker Chew tobacco use (# tins/day): No Frequency of alcohol use: None Drug Abuse: None Lives with: Family Family History: None, Other - Colon cancer Patient has suicidal ideation: No Patient has homicidal ideation: No Neurological Medical History: Reports: Hx Migraine Renal/ Medical History: Denies: Hx Peritoneal Dialysis Musculoskeletal Medical History: Reports Hx Arthritis Past Surgical History: Reports: Hx Appendectomy, Hx Section, Hx Cholecystectomy, Hx Thyroid SurgeryComment Only: Hx Tonsillectomy - adnoids removed Review of Systems - Review of Systems Notes: Constitutional: denies: Chills, Diaphoresis, Fever, Malaise, Weakness EENT: denies: Eye discharge, Blurred vision, Tearing, Double vision, Nose congestion, Nose discharge, Throat swelling, Mouth pain Cardiovascular: denies: Palpitations, Heart racing, Orthopnea, Dyspnea, Chest pain Respiratory: denies: Cough, Hurts to breathe, Wheezing, Shortness of breath Gastrointestinal: denies: Abdominal pain, Diarrhea, Nausea, Vomiting, Black stools, bright red blood in stool Genitourinary: denies: Burning, Dysuria, Discharge, Frequency, Flank pain, Hematuria Musculoskeletal: Severe pain in the left calf with mild swelling. Leg feels heavy. Hematologic/Lymphatic: denies: Anemia, Easy bleeding, Easy bruising, Blood clots Neurological/Psychological: denies: Confusion, Dementia, Depression, Loss of consciousness Skin: No lesions, no masses, no skin breakdown, no abscesses Physical Exam - Vital signs Vitals: Temp Pulse Resp BP Pulse Ox 98.4 F 108 H 18 145/95 H 98 08/29/18 16:07 08/29/18 16:07 08/29/18 16:07 08/29/18 16:07 08/29/18 16:07 Interpretation: Tachycardic - General General appearance: Appears well, Alert - HEENT Head: Normocephalic, Atraumatic Eyes: Normal Pupils: PERRL - Respiratory Respiratory status: No respiratory distress Chest status: Nontender Breath sounds: Normal Chest palpation: Normal - Cardiovascular Rhythm: Tachycardia Heart sounds: Normal auscultation Murmur: No - Abdominal Inspection: Normal Distension: No distension Bowel sounds: Normal Tenderness: Nontender Organomegaly: No organomegaly - Back Back: Normal, Nontender - Extremities General upper extremity: Normal inspection, Nontender, Normal color, Normal ROM , Normal temperature General lower extremity: Other - Patient has significant tenderness to palpation in the gastroc area of the left lower extremity. The Achilles tendon appears intact. Flexing of the ankle exacerbates pain. Patient has bounding pulses present at the dorsalis pedis and posterior tibialis. Good capillary refill.. No: Concha's sign - Neurological Neuro grossly intact: Yes Cognition: Normal Orientation: AAOx4 [place] Coma Scale Eye Opening: Spontaneous [place] Coma Scale Verbal: Oriented [place] Coma Scale Motor: Obeys Commands [place] Coma Scale Total: 15 Speech: Normal Motor strength normal: LUE, RUE, LLE, RLE Sensory: Normal - Psychological Associated symptoms: Normal affect, Normal mood - Skin Skin Temperature: Warm Skin Moisture: Dry Skin Color: Normal Course - Re-evaluation Re-evalutation: 08/29/18 18:12 Ultrasound was performed. No evidence of DVT. More likely she has had a gastroc tendon as a muscle rupture. Patient will need to be followed up with orthopedic surgery. I did consult with Dr. Lim with orthopedic surgery. He will follow patient up in the clinic. We will discharge her with pain medication. Crutches. 08/29/18 18:29 Venous Doppler Study 08/29/18 17:19 IMPRESSION: NO EVIDENCE OF DVT OR SVT IN THE LEFT LEG. 08/29/18 18:29 - Vital Signs Vital signs: Temp Pulse Resp BP Pulse Ox 98.4 F 108 H 18 145/95 H 98 08/29/18 16:07 08/29/18 16:07 08/29/18 16:07 08/29/18 16:07 08/29/18 16:07 Discharge - Discharge Clinical Impression: Gastrocnemius muscle tear Qualifiers: Encounter type: initial encounter Laterality: left Qualified Code(s): S86.112A - Strain of other muscle(s) and tendon(s) of posterior muscle group at lower leg level, left leg, initial encounter Condition: Good Disposition: HOME, SELF-CARE Instructions: Muscle Strain ([facility]), Myalagia (Muscle Pain) ([facility]) Additional Instructions: Patient physical exam you probably more likely tore a muscle in your calf. This will need orthopedic follow-up. The acute management is pain control. We will prescribe any pain medication. You will need crutches. Please make an appointment with the orthopedic surgeon as soon as possible so that you can get the definitive care that you need. Prescriptions: Hydrocodone/Acetaminophen [[place] 5-325 mg Tablet] 1 tab PO TID PRN 4 Days #12 tablet PRN Reason: Referrals: MAAME PELLETIER MD [ACTIVE STAFF] - Follow up in 3-5 days
--- NOTE | 2018-08-29 18:11 | RADIOLOGY REPORT (SQ) ---
EXAM DESCRIPTION: VENOUS UNILATERAL LOWER COMPLETED DATE/TIME: 08/29/2018 6:02 pm REASON FOR STUDY: pain left leg COMPARISON: None. TECHNIQUE: Dynamic and static colon scale and color images acquired of the left leg venous system. Se lected spectral images acquired with additional compression and augmentation maneuvers. The contralat eral common femoral vein and saphenofemoral junction were also imaged. Images stored on PACS. LIMITATIONS: None. FINDINGS: COMMON FEMORAL: Normal phasicity, compression and augmentation. No visualized echogenic ma terial on colon scale. No defects on color images. FEMORAL: Normal compression and augmentation. No visualized echogenic material on colon scale. No defe cts on color images. POPLITEAL: Normal compression, augmentation. No visualized echogenic material on colon scale. No defec ts on color images. CALF VESSELS: Normal compression, augmentation. No visualized echogenic material on colon scale. No de fects on color images. GSV and SSV: Normal compression, augmentation. No visualized echogenic material on colon scale. No def ects on color images. ANY DEEP VENOUS INSUFFICIENCY: Not evaluated. ANY EVIDENCE OF POPLITEAL CYST: No. OTHER: No other significant finding. CONTRALATERAL COMMON FEMORAL VEIN AND SAPHENOFEMORAL JUNCTION: Normal phasicity, compression and augmentation. No visualized echogenic material on colon scale. No de fects on color images. IMPRESSION: NO EVIDENCE OF DVT OR SVT IN THE LEFT LEG. TECHNICAL DOCUMENTATION: JOB ID: [id number] [employer]- All Rights Reserved Reading location - IP/workstation name: [email or web address]
[2018-08-29] MEDS ORDERED: HYDROCODONE/ACETAMINOPHEN 5-325 MG (6 TAB/ER DISP) PO PRN (18:17)
[2018-08-29 18:46] VITALS: BP 141/81
== END 2018-08-29 18:46 | disposition home or self-care (01) ==
LOC: ER 15:54
DX: S86.112A Strain of other muscle(s) and tendon(s) of posterior muscle group at lower leg level, left leg, initial encounter (principal); M79.605 Pain in left leg; X58.XXXA Exposure to other specified factors, initial encounter
CPT/HCPCS: 99284; 96372; 93971; J1885

== ENCOUNTER → 2018-09-02 | Outpatient (CLI) | payer BC ==
--- NOTE | 2018-09-03 11:33 | RADIOLOGY REPORT (SQ) ---
EXAM DESCRIPTION: MRI LT LOWER EXTREMITY WITHOUT COMPLETED DATE/TIME: 09/02/2018 9:42 pm REASON FOR STUDY: S86.112A STRAIN MUSC/TEND POST GRP AT LOW LEG LEVEL, LEFT LEG, INIT S86.112A STRA IN MUSC/TEND POST GRP AT LOW LEG LEVEL, LEFT LE COMPARISON: None. TECHNIQUE: Multiplanar imaging of the left tibia fibula to include fat and fluid sensitive sequences . LIMITATIONS: None. FINDINGS: BONE MARROW: No marrow signal alteration. Specifically no marrow replacement or marrow ed kacey. No evidence for osteomyelitis. No cortical break through. SOFT TISSUES: Fusiform increased T2 signal medial head gastrocnemius extending from insertion to leve l of proximal tibia along the soleus margin. No significant hematoma. OTHER: No other significant finding. IMPRESSION: Grade 1 muscle strain medial head gastrocnemius. TECHNICAL DOCUMENTATION: JOB ID: [id number] [employer]- All Rights Reserved Reading location - IP/workstation name: [email or web address]
== END ==
LOC: RAD 20:19
PROVIDERS: ATTEND Orthopaedic Surgery Sports Medicine
DX: S86.112A Strain of other muscle(s) and tendon(s) of posterior muscle group at lower leg level, left leg, initial encounter (principal); X58.XXXA Exposure to other specified factors, initial encounter; Y93.9 Activity, unspecified; Y92.9 Unspecified place or not applicable

== ENCOUNTER 2018-09-08 08:33 | Emergency (ER) | payer BC ==
--- NOTE | 2018-09-08 09:08 | ER Document Report ---
ED General - General Chief Complaint: Leg Pain Stated Complaint: LEFT LEG PAIN Time Seen by Provider: 09/08/18 08:57 Mode of Arrival: Ambulatory Information source: Patient Notes: 43-year-old female presents emergency department with complaints of left calf pain and bruising. Patient states that she has a tear to her left calf muscle. She has been following up with an orthopedic surgeon for this. Patient had an MRI done to confirm this. Patient states that this morning she woke up with increased bruising and pain to the left calf. Patient states that she is concerned about a possible DVT. She is not on any anticoagulants. Patient states that she has been sitting around and resting more than usual. She denies any numbness, tingling. TRAVEL OUTSIDE OF THE [place] IN LAST 30 DAYS: No - HPI Onset: Just prior to arrival Onset/Duration: Sudden Quality of pain: Achy Severity: Mild Associated symptoms: None Exacerbated by: Denies Relieved by: Denies Similar symptoms previously: No Recently seen / treated by doctor: No - Related Data Allergies/Adverse Reactions: miconazole nitrate [From Monistat 3] Allergy (Severe, Verified 09/08/18 08:35) Hives nitrofurantoin [From Macrobid] Allergy (Severe, Verified 09/08/18 08:35) Anaphylaxis nitrofurantoin macrocrystalline [From Macrobid] Allergy (Severe, Verified 08:35) Anaphylaxis Sulfa (Sulfonamide Antibiotics) Allergy (Severe, Verified 09/08/18 08:35) Anaphylaxis promethazine HCl [From Phenergan] Adverse Reaction (Severe, Verified 09/08/18 08 :35) Psychosis Past Medical History - General Information source: Patient - Social History Smoking Status: Never Smoker Family History: None, Reviewed & Not Pertinent, Other - Colon cancer Neurological Medical History: Reports: Hx Migraine Renal/ Medical History: Denies: Hx Peritoneal Dialysis Musculoskeletal Medical History: Reports Hx Arthritis Past Surgical History: Reports: Hx Appendectomy, Hx Section, Hx Cholecystectomy, Hx Thyroid SurgeryComment Only: Hx Tonsillectomy - adnoids removed Review of Systems - Review of Systems Constitutional: No symptoms reported EENT: No symptoms reported Cardiovascular: No symptoms reported Respiratory: No symptoms reported Gastrointestinal: No symptoms reported Genitourinary: No symptoms reported Female Genitourinary: No symptoms reported Musculoskeletal: Leg swelling Skin: No symptoms reported Hematologic/Lymphatic: No symptoms reported Neurological/Psychological: No symptoms reported -: Yes All other systems reviewed and negative Physical Exam - Vital signs Vitals: Temp Pulse Resp BP Pulse Ox 98.8 F 107 H 16 154/101 H 98 09/08/18 08:44 09/08/18 08:44 09/08/18 08:44 09/08/18 08:44 09/08/18 08:44 - General Notes: PHYSICAL EXAMINATION: GENERAL: Well-appearing, well-nourished and in no acute distress. HEAD: Atraumatic, normocephalic. EYES: Pupils equal round and reactive to light, extraocular movements intact, conjunctiva are normal. ENT: Nares patent, oropharynx clear without exudates. Moist mucous membranes. NECK: Normal range of motion, supple without lymphadenopathy LUNGS: Breath sounds clear to auscultation bilaterally and equal. No wheezes rales or rhonchi. HEART: Regular rate and rhythm without murmurs ABDOMEN: Soft, nontender, nondistended abdomen. No guarding, no rebound. No masses appreciated. Female : deferred Musculoskeletal: Left calf tenderness to palpation. Bruising noted to the left calf distally. 2+ dorsalis pedis and posterior tibialis pulses. NEUROLOGICAL: Cranial nerves grossly intact. Normal speech, normal gait. Normal sensory, motor exams PSYCH: Normal mood, normal affect. SKIN: Warm, Dry, normal turgor, no rashes or lesions noted. Course - Re-evaluation Re-evalutation: 09/08/18 10:34 Venous doppler completed. No DVT seen. Patient is neurovascular intact in the LLE. Patient instructed to followup with orthopedic surgery this week, to take medication as directed, and to return for worsening symptoms. - Vital Signs Vital signs: Temp Pulse Resp BP Pulse Ox 98.8 F 107 H 16 154/101 H 98 09/08/18 08:44 09/08/18 08:44 09/08/18 08:44 09/08/18 08:44 09/08/18 08:44 Discharge - Discharge Clinical Impression: Contusion Qualifiers: Encounter type: initial encounter Contusion area: lower leg Laterality: left Qualified Code(s): S80.12XA - Contusion of left lower leg, initial encounter Disposition: HOME, SELF-CARE Instructions: Contusion ([facility]) Referrals: CARLY MATTHEWS MD [NO LOCAL MD] - Follow up as needed
--- NOTE | 2018-09-08 10:17 | RADIOLOGY REPORT (SQ) ---
EXAM DESCRIPTION: VENOUS UNILATERAL LOWER COMPLETED DATE/TIME: 09/08/2018 10:05 am REASON FOR STUDY: pain left leg / Hx clots COMPARISON: 08/29/2018. TECHNIQUE: Dynamic and static colon scale and color images acquired of the left leg venous system. Se lected spectral images acquired with additional compression and augmentation maneuvers. The contralat eral common femoral vein and saphenofemoral junction were also imaged. Images stored on PACS. LIMITATIONS: None. FINDINGS: COMMON FEMORAL: Normal phasicity, compression and augmentation. No visualized echogenic ma terial on colon scale. No defects on color images. FEMORAL: Normal compression and augmentation. No visualized echogenic material on colon scale. No defe cts on color images. POPLITEAL: Normal compression, augmentation. No visualized echogenic material on colon scale. No defec ts on color images. CALF VESSELS: Normal compression, augmentation. No visualized echogenic material on colon scale. No de fects on color images. GSV and SSV: Normal compression, augmentation. No visualized echogenic material on colon scale. No def ects on color images. ANY DEEP VENOUS INSUFFICIENCY: No. ANY EVIDENCE OF POPLITEAL CYST: No. OTHER: No other significant finding. CONTRALATERAL COMMON FEMORAL VEIN AND SAPHENOFEMORAL JUNCTION: Normal phasicity, compression and augmentation. No visualized echogenic material on colon scale. No de fects on color images. IMPRESSION: NO EVIDENCE DVT OR SVT IN THE LEFT LEG. TECHNICAL DOCUMENTATION: JOB ID: [id number] [employer]- All Rights Reserved Reading location - IP/workstation name: [email or web address]
[2018-09-08 10:56] VITALS: BP 132/86
== END 2018-09-08 10:57 | disposition home or self-care (01) ==
LOC: ER 08:33
DX: S86.912A Strain of unspecified muscle(s) and tendon(s) at lower leg level, left leg, initial encounter (principal); M79.662 Pain in left lower leg; X58.XXXA Exposure to other specified factors, initial encounter; Z88.3 Allergy status to other anti-infective agents; Z88.1 Allergy status to other antibiotic agents; Z88.2 Allergy status to sulfonamides
CPT/HCPCS: 93971; 99284

== ENCOUNTER 2019-10-28 13:43 | Emergency (ER) | payer BC ==
[2019-10-28] MEDS ORDERED: DIPH/PERTUSS(ACELL)/TETANUS VAC/PF 0.5 ML SYR (>=10YO) IM ONE (14:06)
[2019-10-28] MEDS ORDERED: CEPHALEXIN 500 MG CAPSULE PO ONE (14:09)
[2019-10-28] MEDS ORDERED: BUPIVACAINE HCL 0.5 % INJ/PF 30 ML SDV INJ ONE (14:09)
--- NOTE | 2019-10-28 14:13 | ER Document Report ---
HPI - HPI Patient complains to provider of: Thumb laceration Time Seen by Provider: 10/28/19 14:01 Onset: Just prior to arrival Onset/Duration: Sudden Quality of pain: Sharp Pain Level: 4 Context: Patient states she was using scissors to remove staple from a piece of wood. Patient states she slipped and stabbed her left thumb with the scissors. Patient uncertain when her last tetanus immunization is. Associated Symptoms: Other - Left thumb laceration puncture wound. denies: Nausea, Vomiting Exacerbated by: Movement Relieved by: Denies Similar symptoms previously: No Recently seen / treated by doctor: No - ROS ROS below otherwise negative: Yes Systems Reviewed and Negative: Yes All other systems reviewed and negative - NEURO Neurology: DENIES: Weakness - RESPIRATORY Respiratory: DENIES: Trouble Breathing, Coughing - GASTROINTESTINAL Gastrointestinal: DENIES: Nausea - REPRODUCTIVE LMP: birthcontrol - MUSCULOSKELETAL Musculoskeletal: REPORTS: Extremity pain - left thumb - DERM Skin Color: Normal Skin Problems: Laceration, Puncture Wound Past Medical History - General Information source: Patient - Social History Smoking Status: Never Smoker Chew tobacco use (# tins/day): No Frequency of alcohol use: None Drug Abuse: None Occupation: Dental hygienist Lives with: Family Family History: None, Reviewed & Not Pertinent, Other - Colon cancer Patient has suicidal ideation: No Patient has homicidal ideation: No Neurological Medical History: Reports: Hx Migraine Renal/ Medical History: Denies: Hx Peritoneal Dialysis Musculoskeletal Medical History: Reports Hx Arthritis - RA, ankylosing spondylosis Past Surgical History: Reports: Hx Appendectomy, Hx Section, Hx Cholecystectomy, Hx Thyroid SurgeryComment Only: Hx Tonsillectomy - adnoids removed Vertical Provider Document - CONSTITUTIONAL Agree With Documented VS: Yes Exam Limitations: No Limitations General Appearance: WD/WN, No Apparent Distress - INFECTION CONTROL TRAVEL OUTSIDE OF THE [place] IN LAST 30 DAYS: No - HEENT HEENT: Atraumatic, Normocephalic - NECK Neck: Normal Inspection - RESPIRATORY Respiratory: No Respiratory Distress - CARDIOVASCULAR Pulses: Normal: Radial - MUSCULOSKELETAL/EXTREMETIES Musculoskeletal/Extremeties: MAEW, FROM, Tender - Tenderness to left thumb, Edema - 1+. negative: Eccymosis - NEURO Level of Consciousness: Awake, Alert, Appropriate Motor/Sensory: No Motor Deficit, No Sensory Deficit - DERM Integumentary: Warm, Dry, Laceration - Patient with 0.5 cm laceration to the lateral aspect of the left thumb, 0.25 cm laceration to dorsal thumb, normal flexion extension against resistance Course - Re-evaluation Re-evalutation: 10/28/19 14:[address] Flores regarding wound management, Dr. Flores recommends suturing wound 10/28/19 15:00 Patient's digital block performed. Patient been soaking in water and surgical scrub solution. Patient requesting nausea medication at this time. 10/28/19 15:02 - Vital Signs Vital signs: Temp Pulse Resp BP Pulse Ox 97.8 F 93 18 153/90 H 100 10/28/19 14:00 10/28/19 14:00 10/28/19 14:00 10/28/19 14:00 10/28/19 14:00 - Diagnostic Test Radiology reviewed: Image reviewed, Reports reviewed Procedures - Laceration/Wound Repair Left Thumb Wound length (cm): 0.5 Wound's Depth, Shape: Linear Anesthetic type: 0.5% Bupivacaine Wound explored: Clean, No foreign body removed Wound Repaired With: Sutures Suture Size/Type: 5:0, Nylon Number of Sutures: 1 Layer Closure?: No Post-procedure wound care: Sterile dressing applied Post-procedure NV exam normal: Yes Complications: No Discharge - Discharge Clinical Impression: Puncture wound of thumb Qualifiers: Encounter type: initial encounter Laterality: left Qualified Code(s): S61.032A - Puncture wound without foreign body of left thumb without damage to nail, initial encounter Laceration of left thumb Qualifiers: Encounter type: initial encounter Damage to nail status: without damage Foreign body presence: without foreign body Qualified Code(s): S61.012A - Laceration without foreign body of left thumb without damage to nail, initial encounter Condition: Good Disposition: HOME, SELF-CARE Instructions: Laceration Care ([facility]), Prophylactic Antibiotic ([facility]), Tetanus Immunization Given ([facility]) Additional Instructions: Return immediately for any new or worsening symptoms or signs of infection such as redness, streaks, fever, purulent drainage or any concerning symptoms Followup with your primary care provider, call tomorrow to make a followup appointment Suture removal in 8 days Prescriptions: Fluconazole [Diflucan] 150 mg PO ONCE PRN #1 tablet PRN Reason: Cephalexin Monohydrate [Keflex 500 mg Capsule] 500 mg PO Q6H 5 Days capsule Hydrocodone/Acetaminophen [[place] 5-325 mg Tablet] 1 tab PO Q6 PRN #6 tablet PRN Reason: Referrals: HUI ALTAMIRANO MD [Primary Care Provider] - Follow up as needed
[2019-10-28] MEDS ORDERED: OXYCODONE-ACETAMINOPHEN 5-325 MG TABLET PO ONE (14:21)
--- NOTE | 2019-10-28 14:44 | RADIOLOGY REPORT (SQ) ---
EXAM DESCRIPTION: FINGER LEFT COMPLETED DATE/TIME: 10/28/2019 2:35 pm REASON FOR STUDY: PW to thumb COMPARISON: None. NUMBER OF VIEWS: Three views. TECHNIQUE: AP, lateral, and oblique images acquired of the left thumb. LIMITATIONS: None. FINDINGS: MINERALIZATION: Normal. BONES: No acute fracture or dislocation. No worrisome bone lesions. SOFT TISSUES: No soft tissue swelling. No foreign body. OTHER: No other significant finding. IMPRESSION: NO RADIOGRAPHIC EVIDENCE OF ACUTE INJURY. TECHNICAL DOCUMENTATION: JOB ID: [id number] [employer]- All Rights Reserved Reading location - IP/workstation name: [email or web address]
[2019-10-28] MEDS ORDERED: ONDANSETRON 4 MG TAB.RAPDIS PO ONE (14:59)
[2019-10-28 15:51] VITALS: BP 145/75
== END 2019-10-28 15:50 | disposition home or self-care (01) ==
LOC: ER 13:43
DX: S61.012A Laceration without foreign body of left thumb without damage to nail, initial encounter (principal); S61.032A Puncture wound without foreign body of left thumb without damage to nail, initial encounter; W26.8XXA Contact with other sharp object(s), not elsewhere classified, initial encounter; Y93.89 Activity, other specified
CPT/HCPCS: 99283; 90471; 73140; 90715; 12001; J3490; S0119

== ENCOUNTER 2020-04-26 13:27 | Emergency (ER) | payer BC ==
[2020-04-26] MEDS ORDERED: LIDOCAINE 2% VISCOUS SOLN 15 ML UDCUP PO ONE (14:01)
[2020-04-26] MEDS ORDERED: MAG HYDROX/AL HYDROX/SIMETH SUSP 30 ML UDCUP PO ONE (14:01)
[2020-04-26] MEDS ORDERED: METOCLOPRAMIDE HCL ORAL SOLN 10 MG/10 ML UDCUP PO ONE (14:01)
--- NOTE | 2020-04-26 14:03 | ER Document Report ---
ED Medical Screen (RME) - General Chief Complaint: Chest Pain > 30 Stated Complaint: CHEST DISCOMFORT Time Seen by Provider: 04/26/20 13:55 Primary Care Provider: HUI ALTAMIRANO MD [Primary Care Provider] - Follow up as needed Notes: Patient is a 44-year-old female who presents to the emergency department with a chief complaint of chest discomfort. Patient states that she first started to have her discomfort 2 days ago. She thought it was acid reflux and ended up taking Tums, which she states did not work. She ended up also taking her Xanax, which she states did not work also. She continued alternating acid reducers and Xanax, but still continues to have symptoms. Denies a cough. Exam: S1, S2. Tachycardia noted on twelve-lead EKG. I have greeted and performed a rapid initial assessment of this patient. A comprehensive ED assessment and evaluation of the patient, analysis of test results and completion of medical decision making process will be conducted by an additional ED providers. TRAVEL OUTSIDE OF THE [place] IN LAST 30 DAYS: No - Related Data Allergies/Adverse Reactions: miconazole nitrate [From Monistat 3] Allergy (Severe, Verified 10/28/19 13:59) Hives nitrofurantoin [From Macrobid] Allergy (Severe, Verified 10/28/19 13:59) Anaphylaxis nitrofurantoin macrocrystalline [From Macrobid] Allergy (Severe, Verified 10/28/19 13:59) Anaphylaxis Sulfa (Sulfonamide Antibiotics) Allergy (Severe, Verified 10/28/19 13:59) Anaphylaxis promethazine HCl [From Phenergan] Adverse Reaction (Severe, Verified 10/28/19 13:59) Psychosis Past Medical History Neurological Medical History: Reports: Hx Migraine Renal/ Medical History: Denies: Hx Peritoneal Dialysis Musculoskeltal Medical History: Reports Hx Arthritis - RA, ankylosing spondylosis Past Surgical History: Reports: Hx Appendectomy, Hx Section, Hx Cholecystectomy, Hx Thyroid SurgeryComment Only: Hx Tonsillectomy - adnoids removed Physical Exam - Vital signs Vitals: Temp Pulse Resp BP Pulse Ox 98.9 F 103 H 16 176/89 H 99 04/26/20 13:39 04/26/20 13:39 04/26/20 13:39 04/26/20 13:39 04/26/20 13:39 Course - Vital Signs Vital signs: Temp Pulse Resp BP Pulse Ox 98.9 F 103 H 16 176/89 H 99 04/26/20 13:39 04/26/20 13:39 04/26/20 13:39 04/26/20 13:39 04/26/20 13:39 Doctor's Discharge - Discharge Referrals: HUI ALTAMIRANO MD [Primary Care Provider] - Follow up as needed
--- NOTE | 2020-04-26 14:33 | RADIOLOGY REPORT (SQ) ---
EXAM DESCRIPTION: CHEST 2 VIEWS IMAGES COMPLETED DATE/TIME: 04/26/2020 2:23 pm REASON FOR STUDY: chest discomfort COMPARISON: 01/02/2011 EXAM PARAMETERS: NUMBER OF VIEWS: two views TECHNIQUE: Digital Frontal and Lateral radiographic views of the chest acquired. RADIATION DOSE: NA LIMITATIONS: none FINDINGS: LUNGS AND PLEURA: No opacities, masses or pneumothorax. No pleural effusion. MEDIASTINUM AND HILAR STRUCTURES: No masses or contour abnormalities. HEART AND VASCULAR STRUCTURES: Heart normal size. No evidence for failure. BONES: No acute findings. HARDWARE: None in the chest. OTHER: No other significant finding. IMPRESSION: NO ACUTE RADIOGRAPHIC FINDING IN THE CHEST. TECHNICAL DOCUMENTATION: JOB ID: [id number] 2010 [employer]- All Rights Reserved Reading location - IP/workstation name: [email or web address]
[2020-04-26 14:41] LABS: ABSOLUTE LYMPHOCYTES (AUTO) 2.7 10^3/uL (0.5-4.7); ABSOLUTE MONOCYTES (AUTO) 0.3 10^3/uL (0.1-1.4); ABSOLUTE NEUT (AUTO) 3.5 10^3/uL (1.7-8.2); BASOPHILS % (AUTO) 0.6 % (0-2); EOSINOPHILS % (AUTO) 0.7 % (0-6); HEMATOCRIT 37.8 % (36.0-47.0); HEMOGLOBIN 12.9 g/dL (12.0-15.5); LYMPHOCYTES % (AUTO) 40.8 % (13-45); MEAN CORPUSCULAR HEMOGLOBIN 30.7 pg (27.0-33.4); MEAN CORPUSCULAR HGB CONC 34.2 g/dL (32.0-36.0); MEAN CORPUSCULAR VOLUME 90 fl (80-97); MONOCYTES % (AUTO) 4.8 % (3-13); PLATELET COUNT 250 10^3/uL (150-450); RED BLOOD COUNT 4.22 10^6/uL (3.72-5.28); RED CELL DISTRIBUTION WIDTH 12.9 % (11.5-14.0); SEGMENTED NEUTROPHILS % (AUTO) 53.1 % (42-78); TOTAL CELLS COUNTED % (AUTO) 100 %; WHITE BLOOD COUNT 6.7 10^3/uL (4.0-10.5)
[2020-04-26 15:05] LABS: ALBUMIN 4.2 g/dL (3.5-5.0); ALKALINE PHOSPHATASE 68 U/L (38-126); ANION GAP 5 (5-19); ASPARTATE AMINO TRANSFERASE 22 U/L (14-36); BILIRUBIN,TOTAL 0.3 mg/dL (0.2-1.3); BLOOD UREA NITROGEN 18 mg/dL (7-20); CALCIUM 8.8 mg/dL (8.4-10.2); CARBON DIOXIDE 28 mmol/L (22-30); CHLORIDE 103 mmol/L (98-107); CREATINE KINASE 92 U/L (30-135); GLUCOSE 113 mg/dL (75-110); POTASSIUM 4.1 mmol/L (3.6-5.0); TOTAL PROTEIN 7.2 g/dL (6.3-8.2)
--- NOTE | 2020-04-26 17:24 | RADIOLOGY REPORT (SQ) ---
EXAM DESCRIPTION: CTA CHEST IMAGES COMPLETED DATE/TIME: 04/26/2020 5:00 pm REASON FOR STUDY: chest pain COMPARISON: 07/27/2017 TECHNIQUE: CT scan of the chest performed using helical scanning technique with dynamic intravenous contrast injection. Images reviewed with lung, soft tissue and bone windows. Reconstructed coronal and sagittal MPR images reviewed. Additional 3 dimensional post-processing performed to develop Maximal Intensity Projection images ([place] P). All images stored on PACS. All CT scanners at this facility use dose modulation, iterative reconstruction, and/or weight based d osing when appropriate to reduce radiation dose to as low as reasonably achievable (ALARA). [facility]: Dose Right [facility]: CareDose [facility]: Dose Right [facility]: Teradose 4D [facility]: [employer] CONTRAST TYPE AND DOSE: 67 cc Omnipaque 350- low osmolar. Contrast bolus adequate for pulmonary arteries and aorta. RENAL FUNCTION: BUN 18 creatinine 0.82 RADIATION DOSE: CT Rad equipment meets quality standard of care and radiation dose reduction techniq ues were employed. CTDIvol: 19.2 - 19.8 mGy. DLP: 704 mGy-cm. . LIMITATIONS: None. FINDINGS: LUNGS AND PLEURA: No masses, infiltrates, or pneumothorax. No pleural effusions or pleura l calcifications. AORTA AND GREAT VESSELS: No aneurysm. No dissection. HEART: No pericardial effusion. No significant coronary artery calcifications. PULMONARY ARTERIES: No emboli visualized in the main pulmonary arteries or the segmental branches. HILAR AND MEDIASTINAL STRUCTURES: No identified masses or abnormal nodes. HARDWARE: None in the chest. UPPER ABDOMEN: No significant findings. Limited exam. THYROID AND OTHER SOFT TISSUES: No masses. No adenopathy. BONES: No acute or significant finding. 3D MIPS: Confirm above findings. OTHER: No other significant finding. IMPRESSION: No pulmonary emboli. No aortic aneurysm or dissection. No acute findings in the thorax . COMMENT: Quality ID # 436: Final reports with documentation of one or more dose reduction techniques (e.g., Automated exposure control, adjustment of the mA and/or kV according to patient size, use of iterative reconstruction technique) TECHNICAL DOCUMENTATION: JOB ID: [id number] 2010 [employer]- All Rights Reserved Reading location - IP/workstation name: [email or web address]
--- NOTE | 2020-04-26 17:29 | ER Document Report ---
ED Cardiac - General Chief Complaint: Chest Pain > 30 Stated Complaint: CHEST DISCOMFORT Time Seen by Provider: 04/26/20 13:55 Primary Care Provider: HUI ALTAMIRANO MD [Primary Care Provider] - Follow up as needed Mode of Arrival: Ambulatory Information source: Patient Notes: 44-year-old female presents to the emergency room complaining of dull aching tightness midsternal chest pain that has been persistent for the past 2 days. Denies any nausea, vomiting, no diaphoresis. No Trauma no injury. No recent travel. No COVID-19 exposure does take continuous control which she states she is been on for over 2 years. States she did have back surgery a year ago and there was a possibility of PEs initially noted on her CT which were then ruled out. No family history of PE or DVTs. States she has a history of anxiety and has been alternating between Tums and Xanax without relief. Also has noticed her blood pressures been elevated. Does not remember the exact numbers. She noticed on her watch that her heart rate had been greater than 100. States pain does radiate into her left shoulder. Went to her primary care office today and was referred to the emergency room. TRAVEL OUTSIDE OF THE [place] IN LAST 30 DAYS: No - Related Data Allergies/Adverse Reactions: miconazole nitrate [From Monistat 3] Allergy (Severe, Verified 04/26/20 14:04) Hives nitrofurantoin [From Macrobid] Allergy (Severe, Verified 04/26/20 14:04) Anaphylaxis nitrofurantoin macrocrystalline [From Macrobid] Allergy (Severe, Verified 04/26/20 14:04) Anaphylaxis Sulfa (Sulfonamide Antibiotics) Allergy (Severe, Verified 04/26/20 14:04) Anaphylaxis promethazine HCl [From Phenergan] Adverse Reaction (Severe, Verified 04/26/20 14:04) Psychosis Past Medical History - General Information source: Patient - Social History Smoking Status: Never Smoker Chew tobacco use (# tins/day): No Frequency of alcohol use: None Drug Abuse: None Family History: None, Reviewed & Not Pertinent, DM, Hypertension, Other - Colon cancer Patient has homicidal ideation: No Neurological Medical History: Reports: Hx Migraine Renal/ Medical History: Denies: Hx Peritoneal Dialysis Musculoskeletal Medical History: Reports Hx Arthritis - RA, ankylosing spondylosis Past Surgical History: Reports: Hx Appendectomy, Hx Section, Hx Cholecystectomy, Hx Thyroid SurgeryComment Only: Hx Tonsillectomy - adnoids removed Review of Systems - Review of Systems Constitutional: Fever, Malaise Cardiovascular: Chest pain Respiratory: No symptoms reported Gastrointestinal: No symptoms reported Musculoskeletal: No symptoms reported Skin: No symptoms reported Neurological/Psychological: No symptoms reported -: Yes All other systems reviewed and negative Physical Exam - Vital signs Vitals: Temp Pulse Resp BP Pulse Ox 98.9 F 103 H 16 176/89 H 99 04/26/20 13:39 04/26/20 13:39 04/26/20 13:39 04/26/20 13:39 04/26/20 13:39 - Notes Notes: VITAL SIGNS: Within normal limits. GENERAL: Mild acute distress, non-toxic appearance. HEAD: Normal with no signs of head trauma. EYES: PERRLA, EOMI, conjunctiva normal, no discharge. EARS: Hearing grossly intact. NOSE: Normal. THROAT: Oropharynx is normal. NECK: Normal range of motion, no tenderness, supple, no lymphadenopathy, No adenopathy, no JVD. CHEST: Clear breath sounds bilaterally. No wheezes, rales, or rhonchi. No reproducible chest pain. Chest nontender to palpation CARDIAC: Regular rate and rhythm. S1 and S2, without murmurs, gallops, or rubs. VASCULAR: No Edema. Peripheral pulses normal and equal in all extremities. ABDOMEN: Normal and soft with no tenderness, no masses or pulsatile masses. GASTROINTESTINAL: Bowel sounds normal GENITOURINARY: Normal, No tenderness LYMPATHTIC: No lymphadenopathy noted. MUSCULOSKELETAL: Good range of motion of all major joints. Extremities without clubbing, cyanosis or edema. NEUROLOGICAL: Alert and oriented x 3. No focal sensory or strength deficits. Speech normal. Follows commands appropriately. PSYCHIATRIC: Normal Affect, judgement and mood. SKIN: Normal appearance with no rashes or lesions. Course - Re-evaluation Re-evalutation: 04/26/20 17:32 HEART Score: History 1 ECG 0 Age 0 Risk Factors 2 Troponin 0 Total: 2 Chest pain in a patient without evidence of cardiac or other serious etiology on workup today. I discussed with patient that, based on their age, risk factors and emergency department testing today, the likelihood that their symptoms are related to a heart attack is very low (estimated risk of heart attack or over the next 30 days of less than 1%). The patient demonstrates decision making capacity and has verbalized an understanding of these risks to me. Based on this, the patient has chosen to follow-up as an outpatient. Usual chest pain return precautions reviewed. The patient states understanding and agreement with this plan. 04/26/20 18:45 Patient is currently resting comfortably she is pain-free on exam. All test results were reviewed with patient at length. Recommend outpatient follow-up with her primary care physician for further evaluation of her symptoms. Patient was given strict return to the emergency room guidelines. Return for any new or worsening symptoms. All questions were answered. Patient verbalized understanding and agrees with plan of care. - Vital Signs Vital signs: Temp Pulse Resp BP Pulse Ox 97.9 F 103 H 18 146/92 H 100 04/26/20 18:37 04/26/20 13:39 04/26/20 18:37 04/26/20 18:37 04/26/20 18:37 - Laboratory Result Diagrams: 04/26/20 14:10 04/26/20 14:10 Laboratory results interpreted by me: 04/26/20 14:10 Sodium 136.4 L Glucose 113 H - Diagnostic Test Radiology reviewed: Reports reviewed - EKG Interpretation by Me Additional EKG results interpreted by me: 04/26/20 17:31 EKG was interpreted by ED physician Dr. Ríos No acute STEMI Sinus tachycardia Discharge - Discharge Clinical Impression: Chest pain Qualifiers: Chest pain type: unspecified Qualified Code(s): R07.9 - Chest pain, unspecified Condition: Stable Disposition: HOME, SELF-CARE Instructions: Chest Pain of Unclear Cause ([facility]) Additional Instructions: You were seen today for chest pain. The exact cause of your pain is unclear. However, based on your cardiac enzyme testing, chest x-ray, and EKG it does not appear that it is from an immediately life-threatening cause at this time. Although your testing here is normal is critical that you follow-up with your primary care physician for continued evaluation of this chest pain and possible stress testing. I recommended you see your physician within the next 24-48 hours to be evaluated for consideration of a stress test. Please return to emergency department immediately if you have worsening of your chest pain, shortness of breath, vomiting, become unable to exert yourself due to pain or difficulty breathing, you pass out, or have any pain that radiates into your arms, jaw, or back. Please also return if you have any additional symptoms that are concerning to you. Forms: Return to Work Referrals: HUI ALTAMIRANO MD [Primary Care Provider] - Follow up as needed
[2020-04-26] MEDS ORDERED: KETOROLAC TROMETHAMINE INJ/PF 30 MG/1 ML SDV IV ONE (17:41)
--- NOTE | 2020-04-26 18:46 | EKG REPORT ---
SEVERITY:- OTHERWISE NORMAL ECG - SINUS TACHYCARDIA : Confirmed by: Marcus Watkins MD 26-Apr-2020 18:46:12
[2020-04-26 18:53] VITALS: BP 146/92
== END 2020-04-26 18:54 | disposition home or self-care (01) ==
LOC: ER 13:27
DX: R07.89 Other chest pain (principal); M25.512 Pain in left shoulder; R50.9 Fever, unspecified; R53.81 Other malaise; R00.0 Tachycardia, unspecified; F41.9 Anxiety disorder, unspecified; Z79.3 Long term (current) use of hormonal contraceptives; Z88.3 Allergy status to other anti-infective agents; Z88.1 Allergy status to other antibiotic agents; Z88.2 Allergy status to sulfonamides
CPT/HCPCS: 93005; 99285; 96374; 36415; 82550; 83735; 84703; 85025; 80053; 84484; 71046; 71275; 93010; J3490; J1885

== ENCOUNTER 2020-11-14 10:33 | Emergency (ER) | payer BC ==
[2020-11-14 10:42] VITALS: BP 145/78
--- NOTE | 2020-11-14 11:20 | ER Document Report ---
ED Medical Screen (RME) - General Stated Complaint: GENERAL WEAKNESS,DIZZINESS Time Seen by Provider: 11/14/20 11:13 Primary Care Provider: HUI ALTAMIRANO MD [Primary Care Provider] - Follow up as needed Mode of Arrival: Wheelchair Information source: Patient Notes: HPI; 45-year-old female presents to the emergency room stating "I just do not feel right". States that she feels fatigued, dizzy, off balance. Symptoms started this morning. Denies any recent head trauma or head injury. Denies any nausea or vomiting. No COVID-19 exposure. PE: Alert and oriented x3. PERRLA, EOMI bilateral photophobia noted. Lungs: Clear to auscultation without rales, rhonchi, wheezes. Heart, tachycardic without murmurs, rubs, gallops. I have greeted and performed a rapid initial assessment of this patient. A comprehensive ED assessment and evaluation of the patient, analysis of test results and completion of the medical decision making process will be conducted by additional ED providers. I have specifically instructed the patient or family members with the patient to immediately return to any nursing staff should anything change in the patient's condition or with their chief complaint. TRAVEL OUTSIDE OF THE [place] IN LAST 30 DAYS: No - Related Data Allergies/Adverse Reactions: miconazole nitrate [From Monistat 3] Allergy (Severe, Verified 04/26/20 14:04) Hives nitrofurantoin [From Macrobid] Allergy (Severe, Verified 04/26/20 14:04) Anaphylaxis nitrofurantoin macrocrystalline [From Macrobid] Allergy (Severe, Verified 04/26/20 14:04) Anaphylaxis Sulfa (Sulfonamide Antibiotics) Allergy (Severe, Verified 04/26/20 14:04) Anaphylaxis promethazine HCl [From Phenergan] Adverse Reaction (Severe, Verified 04/26/20 14:04) Psychosis Past Medical History Neurological Medical History: Reports: Hx Migraine Renal/ Medical History: Denies: Hx Peritoneal Dialysis Musculoskeltal Medical History: Reports Hx Arthritis - RA, ankylosing spondylosis Past Surgical History: Reports: Hx Appendectomy, Hx Section, Hx Cholecystectomy, Hx Thyroid SurgeryComment Only: Hx Tonsillectomy - adnoids removed Physical Exam - Vital signs Vitals: Temp Pulse Resp BP Pulse Ox 98.0 F 90 16 145/78 H 100 11/14/20 10:40 11/14/20 10:40 11/14/20 10:40 11/14/20 10:40 11/14/20 10:40 Course - Vital Signs Vital signs: Temp Pulse Resp BP Pulse Ox 98.0 F 90 16 145/78 H 100 11/14/20 10:40 11/14/20 10:40 11/14/20 10:40 11/14/20 10:40 11/14/20 10:40 Doctor's Discharge - Discharge Referrals: HUI ALTAMIRANO MD [Primary Care Provider] - Follow up as needed
[2020-11-14 12:15] LABS: ABSOLUTE BASOPHILS # (AUTO) 0.1 10^3/uL (0.0-0.2); ABSOLUTE EOSINOPHILS # (AUTO) 0.1 10^3/uL (0.0-0.6); ABSOLUTE LYMPHOCYTES (AUTO) 2.4 10^3/uL (0.5-4.7); ABSOLUTE MONOCYTES (AUTO) 0.4 10^3/uL (0.1-1.4); ABSOLUTE NEUT (AUTO) 2.6 10^3/uL (1.7-8.2); BASOPHILS % (AUTO) 0.9 % (0-2); EOSINOPHILS % (AUTO) 2.1 % (0-6); HEMATOCRIT 40.4 % (36.0-47.0); HEMOGLOBIN 13.4 g/dL (12.0-15.5); LYMPHOCYTES % (AUTO) 43.8 % (13-45); MEAN CORPUSCULAR HEMOGLOBIN 28.8 pg (27.0-33.4); MEAN CORPUSCULAR HGB CONC 33.2 g/dL (32.0-36.0); MEAN CORPUSCULAR VOLUME 87 fl (80-97); MONOCYTES % (AUTO) 6.6 % (3-13); PLATELET COUNT 261 10^3/uL (150-450); RED BLOOD COUNT 4.65 10^6/uL (3.72-5.28); RED CELL DISTRIBUTION WIDTH 12.6 % (11.5-14.0); SEGMENTED NEUTROPHILS % (AUTO) 46.6 % (42-78); TOTAL CELLS COUNTED % (AUTO) 100 %; WHITE BLOOD COUNT 5.5 10^3/uL (4.0-10.5)
--- NOTE | 2020-11-14 12:18 | RADIOLOGY REPORT (SQ) ---
EXAM DESCRIPTION: CT HEAD WITHOUT IMAGES COMPLETED DATE/TIME: 11/14/2020 11:46 am REASON FOR STUDY: dizzy COMPARISON: 07/12/2018 TECHNIQUE: Axial images acquired through the brain without intravenous contrast. Images reviewed wi th bone, brain and subdural windows. Additional sagittal and coronal reconstructions were generated. Images stored on PACS. All CT scanners at this facility use dose modulation, iterative reconstruction, and/or weight based d osing when appropriate to reduce radiation dose to as low as reasonably achievable (ALARA). [facility]: Dose Right [facility]: CareDose [facility]: Dose Right [facility]: Teradose 4D [facility]: [employer] RADIATION DOSE: CT Rad equipment meets quality standard of care and radiation dose reduction techniq ues were employed. CTDIvol: 48.8 mGy. DLP: 859 mGy-cm. mGy. LIMITATIONS: None. FINDINGS: VENTRICLES: Normal size and contour. CEREBRUM: No masses. No hemorrhage. No midline shift. No evidence for acute infarction. Normal gra y/white matter differentiation. No areas of low density in the white matter. CEREBELLUM: No masses. No hemorrhage. No alteration of density. No evidence for acute infarction. EXTRAAXIAL SPACES: No fluid collections. No masses. ORBITS AND GLOBE: No intra- or extraconal masses. Normal contour of globe without masses. CALVARIUM: No fracture. PARANASAL SINUSES: No fluid or mucosal thickening. SOFT TISSUES: No mass or hematoma. OTHER: No other significant finding. IMPRESSION: NORMAL BRAIN CT WITHOUT CONTRAST. EVIDENCE OF ACUTE STROKE: NO. COMMENT: Quality ID # [id number]: Final reports with documentation of one or more dose reduction techniques (e.g., Automated exposure control, adjustment of the mA and/or kV according to patient size, use of iterative reconstruction technique) TECHNICAL DOCUMENTATION: JOB ID: [id number] 2010 [employer]- All Rights Reserved Reading location - IP/workstation name: [email or web address]
[2020-11-14 12:29] LABS: ALBUMIN 4.2 g/dL (3.5-5.0); ALKALINE PHOSPHATASE 75 U/L (38-126); ANION GAP 6 (5-19); ASPARTATE AMINO TRANSFERASE 22 U/L (14-36); BILIRUBIN,DIRECT 0.2 mg/dL (0.0-0.4); BILIRUBIN,TOTAL 0.3 mg/dL (0.2-1.3); BLOOD UREA NITROGEN 16 mg/dL (7-20); CALCIUM 8.9 mg/dL (8.4-10.2); CARBON DIOXIDE 27 mmol/L (22-30); CHLORIDE 105 mmol/L (98-107); GLUCOSE 82 mg/dL (75-110); POTASSIUM 4.4 mmol/L (3.6-5.0); TOTAL PROTEIN 7.5 g/dL (6.3-8.2)
[2020-11-14] MEDS ORDERED: METOCLOPRAMIDE HCL INJ/PF 10 MG/2 ML SDV IM ONE (14:13)
[2020-11-14] MEDS ORDERED: KETOROLAC TROMETHAMINE INJ/PF 30 MG/1 ML SDV IM ONE (14:13)
--- NOTE | 2020-11-14 14:19 | ER Document Report ---
ED Dizziness/Weakness - General Stated Complaint: GENERAL WEAKNESS,DIZZINESS Time Seen by Provider: 11/14/20 11:13 Primary Care Provider: HUI ALTAMIRANO MD [Primary Care Provider] - Follow up as needed Mode of Arrival: Ambulatory Information source: Patient TRAVEL OUTSIDE OF THE [place] IN LAST 30 DAYS: No - HPI Patient complains to provider of: Weakness, Other - Headache Notes: Patient here with complaints of not feeling right this morning. The patient states that when she woke up she felt some pressure in the back of her head. She also felt very fatigued and felt like everything was moving really slow. Patient states that she went to work but was having trouble at work due to her sensations so she left work and came here for evaluation. The patient was complaining of photophobia. Initially she denied any headache. As she sat here, she did develop a headache similar to her typical migraines. She is unsure if the symptoms that she was having this morning were potentially an aura to a migraine. She denies any current chest pain or shortness of breath. No abdominal pain. No nausea, vomiting, diarrhea. No neck stiffness. No rash. No blurred or lost vision. No abdominal pain. Pain in the head is moderate, constant, worse with light, nothing makes it better. Patient denies any other complaints at this time. - Related Data Allergies/Adverse Reactions: miconazole nitrate [From Monistat 3] Allergy (Severe, Verified 04/26/20 14:04) Hives nitrofurantoin [From Macrobid] Allergy (Severe, Verified 04/26/20 14:04) Anaphylaxis nitrofurantoin macrocrystalline [From Macrobid] Allergy (Severe, Verified 04/26/20 14:04) Anaphylaxis Sulfa (Sulfonamide Antibiotics) Allergy (Severe, Verified 04/26/20 14:04) Anaphylaxis promethazine HCl [From Phenergan] Adverse Reaction (Severe, Verified 04/26/20 14:04) Psychosis Past Medical History - General Information source: Patient - Social History Smoking Status: Never Smoker Frequency of alcohol use: None Drug Abuse: None Family History: None, Reviewed & Not Pertinent, DM, Hypertension, Other - Colon cancer Neurological Medical History: Reports: Hx Migraine Renal/ Medical History: Denies: Hx Peritoneal Dialysis Musculoskeletal Medical History: Reports Hx Arthritis - RA, ankylosing spondylosis Past Surgical History: Reports: Hx Appendectomy, Hx Section, Hx Cholecystectomy, Hx Thyroid SurgeryComment Only: Hx Tonsillectomy - adnoids removed Review of Systems - Review of Systems -: Yes All other systems reviewed and negative Physical Exam - Vital signs Vitals: Temp Pulse Resp BP Pulse Ox 98.0 F 90 16 145/78 H 100 11/14/20 10:40 11/14/20 10:40 11/14/20 10:40 11/14/20 10:40 11/14/20 10:40 - Notes Notes: GENERAL: alert, cooperative, nontoxic, no distress. HEAD: normocephalic, atraumatic EYES: conjunctiva pink without discharge, no external redness or swelling. Pupils are equal, round, reactive to light. Extraocular muscles intact bilaterally. EARS: no external swelling, no external redness NOSE: atraumatic, no external swelling MOUTH/THROAT: mucous membranes moist and pink, posterior pharynx without e rythema, swelling, exudate. No trismus or drooling. NECK: soft, supple, full range of motion, no meningismus. CHEST: no distress, lungs clear and equal throughout. No wheezing, rales, rhonchi. CARDIAC: regular rate and rhythm, no murmur BACK: full range of motion EXTREMITIES: full range of motion of all extremities. No redness, no swelling. NEURO: alert and oriented x 3, cranial nerves II through XII are grossly intact. Upper and lower extremities are equal throughout. Normal sensation. No focal deficits, full range of motion of all extremities. normal finger to nose. PYSCH: appropriate mood, affect. Patient is cooperative. SKIN: pink, warm, dry, no rash. Course - Re-evaluation Re-evalutation: 11/14/20 14:19 Patient resting comfortably this time. Patient states she now has a headache which is typical of her normal migraine headaches. Patient will be given a shot of Toradol and Reglan prior to her discharge home. She currently denies any chest pain, shortness of breath, numbness, tingling, weakness. Overall she looks well. She has a nonfocal neurological exam. EKG shows no acute findings. White count 5.5, hemoglobin hematocrit are normal. Chemistries are normal, troponin is less than 0.012. Head CT shows no acute abnormality. It is possible that the patient's symptoms that she was having this morning could have been an aura to the migraine that she has currently. At this point she does look well enough for discharge home. She has no complaints of sudden onset, thunderclap headache. She has no sign of subarachnoid hemorrhage, intracranial hemorrhage, meningitis. I did offer to check her TSH and free T4 since she does have a prior history of of thyroidectomy. She states that she would rather do this as an outpatient with her doctor which I do believe is reasonable. She instructed follow-up with her doctor the next available appointment. Follow-up sooner for worsening pain, fever, numbness, tingling, weakness, chest pain or shortness of breath, or any further concerns. The patient's emergency department workup and current diagnosis were explained to the patient and or family. Follow-up instructions were provided. Medications if prescribed were discussed. Instructions for when to return to the emergency department including specific worrisome symptoms were discussed with the patient and/or family. - Vital Signs Vital signs: Temp Pulse Resp BP Pulse Ox 98.0 F 90 16 145/78 H 100 11/14/20 10:40 11/14/20 10:40 11/14/20 10:40 11/14/20 10:40 11/14/20 10:40 - Laboratory Results Result Diagrams: 11/14/20 11:49 11/14/20 11:49 Critical Laboratory Results Reviewed: No Critical Results - Radiology Results Critical Radiology Results Reviewed: No Critical Results - Patient resting comfortably at this time. I have gone over results with the patient. She now complains of a headache which she states feels like her typical migraines. - EKG Interpretation by Me EKG shows normal: Sinus rhythm Rate: Normal Rhythm: NSR Additional EKG results interpreted by me: 11/14/20 14:19 Normal sinus rhythm, ventricular rate of 85. NC interval 140, QRS duration 68, QT interval 384, no ST elevation or depression, no STEMI. Discharge - Discharge Clinical Impression: Weakness Headache Qualifiers: Headache type: unspecified Headache chronicity pattern: acute headache Intractability: not intractable Qualified Code(s): R51.9 - Headache, unspecified Condition: Stable Disposition: HOME, SELF-CARE Instructions: Migraine Headache ([facility]), Weakness ([facility]) Additional Instructions: Take your normal medications as needed. Drink plenty fluids. Follow-up with your doctor at the next available appointment to have your thyroid levels rechecked. Follow-up sooner/return the emergency department for worsening pain, high fever, numbness, tingling, weakness, chest pain or shortness of breath, neck stiffness, persistent vomiting, or any further concerns. Referrals: HUI ALTAMIRANO MD [Primary Care Provider] - Follow up as needed
--- NOTE | 2020-11-14 23:40 | EKG REPORT ---
SEVERITY:- NORMAL ECG - SINUS RHYTHM : Confirmed by: Caroline Sumner 14-Nov-2020 23:39:16
== END 2020-11-14 14:51 | disposition home or self-care (01) ==
LOC: ER 10:33
DX: R53.1 Weakness (principal); R51.9 Headache, unspecified; R42 Dizziness and giddiness; Z88.2 Allergy status to sulfonamides
CPT/HCPCS: 93005; 99285; 96372; 36415; 84703; 85025; 80053; 84484; 70450; 93010; J1885; J2765